=== PATIENT | female | born 1990 | race Caucasian/White ===

== ENCOUNTER 2018-04-29 12:56 | Emergency (ER) | payer MEDICAID ==
[~2018-04-29] VITALS: Ht 182.9 cm; Wt 115.4 kg
[2018-04-29 13:22] VITALS: BP 133/95
--- NOTE | 2018-04-29 13:30 | NUR ---
PT AMBULATED TO BED 6
--- NOTE | 2018-04-29 14:00 | NUR ---
28/F BIB SELF C/O L SHOULD PAIN WHEN WOKE UP THIS AM. PT STATED IT'S FROM LIFTING AT WORK, PT HAS POSITIVE, FULL ROM. NO OBVIOUS DEFORMATIES NOTED, NO SWELLING. PT STATES 9/10 PAIN ONLY WHEN SHE MOVES IT FROM SIDE TO SIDE AND IT FEELS LIKE A SHARP PAIN. 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 SKIN IS PINK/WARM/DRY; AAOX4 WITH EVEN AND STEADY GAIT; LUNGS CLEAR BL; PATIENT STATES PAIN OF 9/10 AT THIS TIME; PATIENT POSITIONED FOR COMFORT; HOB ELEVATED; BEDRAILS UP X2; BED DOWN. ER MD MADE AWARE OF PT STATUS.
--- NOTE | 2018-04-29 14:25 | NUR ---
Note undone in EDM - 04/29/18 at 1452 by [email or web address] / BIB SELF C/O L SHOULD PAIN WHEN WOKE UP THIS AM. PT STATED IT'S FROM LIFTING AT WORK, PT HAS POSITIVE, FULL ROM. NO OBVIOUS DEFORMATIES NOTED, NO SWELLING. PT STATES 9/10 PAIN ONLY WHEN SHE MOVES IT FROM SIDE TO SIDE AND IT FEELS LIKE A SHARP PAIN. 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 SKIN IS PINK/WARM/DRY; AAOX4 WITH EVEN AND STEADY GAIT; LUNGS CLEAR BL; PATIENT STATES PAIN OF 9/10 AT THIS TIME; PATIENT POSITIONED FOR COMFORT; HOB ELEVATED; BEDRAILS UP X2; BED DOWN. ER MD MADE AWARE OF PT STATUS.
[2018-04-29] MEDS ORDERED: LIDOCAINE 2% 1000 MG/50 ML VIAL INJ ONE (14:30)
[2018-04-29 16:00] VITALS: BP 119/77
== END 2018-04-29 16:00 | disposition home or self-care (01) ==
LOC: MED 12:56
DX: M62.830 Muscle spasm of back (principal)
CPT/HCPCS: 20552; 99284; J2001

== ENCOUNTER 2018-05-04 07:09 | Emergency (ER) | payer MEDICAID ==
[~2018-05-04] VITALS: Ht 182.9 cm; Wt 111.6 kg
[2018-05-04 07:19] VITALS: BP 142/100
--- NOTE | 2018-05-04 07:23 | NUR ---
patient ambulated to rm 11 with steady gait. Gave report to Chelsi AYERS.
--- NOTE | 2018-05-04 07:37 | NUR ---
PATIENT PRESENTS TO ED WITH COMPLAINTS OF LEFT SHOULDER PAIN AND SEVERE HAND WEAKNESS X 1 DAY. PATIENT ALSO STATES SHE FEELS WEAK. DENIES N/V/D; SKIN IS PINK/WARM/DRY; AAOX4 WITH EVEN AND STEADY GAIT; LUNGS CLEAR BL; HR EVEN AND REGULAR; PT DENIES ANY FEVER, CP, SOB, OR COUGH AT THIS TIME; PATIENT STATES PAIN OF 9/10 AT THIS TIME; VSS; PATIENT POSITIONED FOR COMFORT; HOB ELEVATED; BEDRAILS UP X1; BED DOWN. ER MD MADE AWARE OF PT STATUS.
[2018-05-04] MEDS ORDERED: LIDOCAINE 2% 1000 MG/50 ML VIAL INJ ONE (07:45)
[2018-05-04 08:59] VITALS: BP 140/96
== END 2018-05-04 08:57 | disposition home or self-care (01) ==
LOC: MED 07:09
DX: M62.830 Muscle spasm of back (principal); R03.0 Elevated blood-pressure reading, without diagnosis of hypertension
CPT/HCPCS: 20552; 99284; J2001

== ENCOUNTER 2018-05-06 14:12 | Emergency (ER) | payer MEDICAID ==
[~2018-05-06] VITALS: Ht 182.9 cm; Wt 111.6 kg
[2018-05-06 14:23] VITALS: BP 133/73
--- NOTE | 2018-05-06 14:27 | NUR ---
PT AMBULATES TO BED 8
--- NOTE | 2018-05-06 14:30 | NUR ---
BIB SELF. PATIENT PRESENTS TO ED WITH NECK PAIN . PT STATES SEVERE PAIN FOR 2 WEEKS . DENIES N/V/D; SKIN IS PINK/WARM/DRY; AAOX4 WITH EVEN AND STEADY GAIT; LUNGS CLEAR BL; HR EVEN AND REGULAR; PT DENIES ANY FEVER, CP, SOB, OR COUGH AT THIS TIME; PATIENT STATES PAIN OF 8/10 AT THIS TIME; VSS; PATIENT POSITIONED FOR COMFORT; HOB ELEVATED; BEDRAILS UP X2; BED DOWN. ER MADE AWARE OF PT STATUS. Addendum: 05/06/18 at 1446 by TINY PT DENIES TRAUMA OR ACCIDENT
[2018-05-06] MEDS ORDERED: KETOROLAC 60 MG/2 ML VIAL IM ONE (16:15)
[2018-05-06 16:53] VITALS: BP 119/75
--- NOTE | 2018-05-06 16:53 | NUR ---
Patient discharged with v/s stable. Written and verbal after care instructions given and explained. Patient alert, oriented and verbalized understanding of instructions. Ambulatory with steady gait. All questions addressed prior to discharge. ID band removed. Patient advised to follow up with PMD. Rx of NORCO& VALIAM given. Patient educated on indication of medication including possible reaction and side effects. Opportunity to ask questions provided and answered.
== END 2018-05-06 16:53 | disposition home or self-care (01) ==
LOC: MED 14:12
DX: M54.2 Cervicalgia (principal); M25.512 Pain in left shoulder; F17.200 Nicotine dependence, unspecified, uncomplicated
CPT/HCPCS: 81002; 81025; 96372; 99283; J1885